=== PATIENT | female | born 1990 | race Two or more races ===

== ENCOUNTER 2019-04-09 19:22 | Emergency (ER) | payer MEDICAID, OTHER ==
[~2019-04-09] VITALS: Ht 167.6 cm; Wt 102.3 kg
[2019-04-09] MEDS ORDERED: PROZ10 PO (20:40)
[2019-04-09] MEDS ORDERED: OLAN10TA3 PO (20:40)
[2019-04-09] MEDS ORDERED: ACETAMINOPHEN 500 MG TABLET PO ONE (20:45)
[2019-04-09 22:30] VITALS: BP 118/82
== END 2019-04-09 22:30 | disposition home or self-care (01) ==
LOC: EMS 19:25
DX: M25.561 Pain in right knee (principal)